=== PATIENT | male | born 1950 | race Caucasian/White ===

== ENCOUNTER 2017-08-08 23:27 | Inpatient (IN) ==
[2017-08-09] MEDS ORDERED: PHENAZOPYRIDINE 95 MG TABLET PO STA (00:16)
[2017-08-09] MEDS ORDERED: ONDANSETRON 4 MG/2 ML VIAL IV PRN (00:33)
[2017-08-09 00:59] LABS: Apearance,Urine CLOUDY (Clear); Bilirubin,Urine Negative (Negative); Blood, Urine Moderate mg/dL (Negative); Calcium Oxalate Crystals,Urine Many /HPF (Few); Glucose,Urine (UA) 50 mg/dL (Negative); Ketones,Urine 20 mg/dL (Negative); Nitrite,Urine Negative (Negative); Protein,Urine 100 MG/DL; RBC,Urine 7229 /HPF (0-4); Urine Color Amber (Yellow); Urine Specific Gravity 1.011 (1.001-1.035); Urine Urobilinogen < 2.0 EU/DL (0.2-1.0); WBC,Urine 373 /HPF (0-6)
[2017-08-09 01:05] LABS: Albumin 4.1 G/DL (3.4-5.0); Calcium 8.8 MG/DL (8.5-10.1); Osmolality,Calculated 280.4 MOS/KG (273-304); Potassium 4.5 MMOL/L (3.5-5.1); Total Protein 7.1 G/DL (6.4-8.3)
[2017-08-09 01:07] LABS: Basophils # 0.1 10*3/uL (0.0-0.2); Basophils % 0.4 % (0.0-0.8); Eosinophils # 0.1 10*3/uL (0.0-0.87); Eosinophils % 0.4 % (0.00-10.9); Hematocrit 38.9 VOL% (42.0-52.0); Hemoglobin 13.4 GM/DL (14.0-18.0); Immature Granulocytes % 0.5 %; Immature Granulocytes Absolute 0.06 #; Lymphocytes # 1.6 10*3/uL (1.4-4.0); Mean Corpuscular HGB Conc 34.4 GM/DL (32-36); Mean Corpuscular Hemoglobin 30 PG (27-34); Mean Corpuscular Volume 86.8 FL (87-102); Monocytes # 0.5 10*3/uL (0.11-0.8); Monocytes % 4.4 % (1.7-12.7); Neutrophils % 81.3 % (38.7-73.9); Platelet Count 189 T/CUMM (130-400); Red Blood Count 4.48 MC/CUMM (3.8-5.5); White Blood Count 12.3 T/CUMM (4-12)
[2017-08-09 06:09] LABS: Hematocrit 37.2 VOL% (42.0-52.0); Hemoglobin 12.9 GM/DL (14.0-18.0)
[2017-08-09] MEDS: TAMSULOSIN 0.4 MG CAPSULE PO SCH (09:35)
[2017-08-09] MEDS: PANTOPRAZOLE 40 MG TABLET PO SCH (09:35)
[2017-08-09] MEDS: ceFAZolin 1,000 MG in SYRINGE 1 EACH IV SCH ×3 (09:35→23:28)
[2017-08-09] MEDS: PHENAZOPYRIDINE 95 MG TABLET PO SCH ×3 (09:35→17:44)
[2017-08-09] MEDS: CARVEDILOL 6.25 MG TABLET PO SCH (21:11)
[2017-08-09] MEDS: busPIRone 10 MG TABLET PO SCH (21:11)
[2017-08-09] MEDS: DONEPEZIL 10 MG TABLET PO SCH (21:11)
[2017-08-09] MEDS: PRAVASTATIN 20 MG TABLET PO SCH (21:11)
[2017-08-10] MEDS: PHENAZOPYRIDINE 95 MG TABLET PO SCH ×3 (07:14→16:09)
[2017-08-10] MEDS: TAMSULOSIN 0.4 MG CAPSULE PO SCH ×2 (07:14→08:22)
[2017-08-10] MEDS: PANTOPRAZOLE 40 MG TABLET PO SCH ×2 (07:14→08:22)
[2017-08-10] MEDS: ceFAZolin 1,000 MG in SYRINGE 1 EACH IV SCH ×3 (08:57→23:43)
[2017-08-10 09:17] LABS: Hematocrit 35.1 VOL% (42.0-52.0)
[2017-08-10] MEDS: oxyCODONE/ACETAMINOPHEN 5-325 MG TABLET PO PRN ×4 (11:57→22:33)
[2017-08-10] MEDS ORDERED: SENNA 8.6 MG TABLET PO PRN (13:21)
[2017-08-10] MEDS ORDERED: SENNA 8.6 MG TABLET PO ONE (13:21)
[2017-08-10] MEDS ORDERED: HYDROmorphone 2 MG/1 ML VIAL IV PRN (13:23)
[2017-08-10] MEDS: DONEPEZIL 10 MG TABLET PO SCH (20:21)
[2017-08-10] MEDS: busPIRone 10 MG TABLET PO SCH (20:21)
[2017-08-10] MEDS: PRAVASTATIN 20 MG TABLET PO SCH (20:21)
[2017-08-10] MEDS: CARVEDILOL 6.25 MG TABLET PO SCH (20:21)
[2017-08-11 06:44] LABS: Basophils % 0.3 % (0.0-0.8); Eosinophils # 0.3 10*3/uL (0.0-0.87); Eosinophils % 1.7 % (0.00-10.9); Hematocrit 34.9 VOL% (42.0-52.0); Hemoglobin 11.9 GM/DL (14.0-18.0); Immature Granulocytes % 0.5 %; Immature Granulocytes Absolute 0.07 #; Lymphocytes # 2.5 10*3/uL (1.4-4.0); Lymphocytes % 17.1 % (21.2-54.2); Mean Corpuscular HGB Conc 34.1 GM/DL (32-36); Mean Corpuscular Hemoglobin 30 PG (27-34); Mean Corpuscular Volume 88.1 FL (87-102); Mean Platelet Volume 11.5 FL (9.6-12.0); Monocytes # 1.2 10*3/uL (0.11-0.8); Neutrophils # 10.8 10*3/uL (1.4-7.4); Neutrophils % 72.4 % (38.7-73.9); Platelet Count 199 T/CUMM (130-400); Red Blood Count 3.96 MC/CUMM (3.8-5.5); Red Cell Distribution Width 12.8 % (9.3-17.3); White Blood Count 14.8 T/CUMM (4-12)
[2017-08-11 07:12] LABS: Calcium 8.9 MG/DL (8.5-10.1); Osmolality,Calculated 281.3 MOS/KG (273-304); Potassium 4.3 MMOL/L (3.5-5.1)
[2017-08-11] MEDS ORDERED: BISACODYL 5 MG TABLET PO ONE (08:31)
[2017-08-11] MEDS: TAMSULOSIN 0.4 MG CAPSULE PO SCH (08:54)
[2017-08-11] MEDS: DUTASTERIDE 0.5 MG CAPSULE PO SCH (08:55)
[2017-08-11] MEDS: oxyCODONE/ACETAMINOPHEN 5-325 MG TABLET PO PRN (08:55)
[2017-08-11] MEDS: ceFAZolin 1,000 MG in SYRINGE 1 EACH IV SCH (09:21)
[2017-08-11] MEDS: PANTOPRAZOLE 40 MG TABLET PO SCH ×2 (09:24→12:11)
[2017-08-11] MEDS: PHENAZOPYRIDINE 95 MG TABLET PO SCH (09:24)
[2017-08-11] MEDS: MULTIVITAMIN (CENTRUM) TABLET PO SCH ×2 (09:24→12:11)
[2017-08-11] MEDS: FOLIC ACID 1 MG TABLET PO SCH ×2 (09:24→12:11)
[2017-08-11] MEDS ORDERED: LIDOCAINE 2% TOP JELLY 20 ML VIAL INTRAURETH ONE (09:53)
[2017-08-11] MEDS ORDERED: NEOMYCIN/POLYMYXIN IRRIG SOLN 1 ML AMP BLADDERIRR ONE (09:54)
[2017-08-11] MEDS ORDERED: PROPOFOL 200 MG/20 ML VIAL IV ONE (10:57)
[2017-08-11] MEDS ORDERED: fentaNYL 100 MCG/2 ML VIAL ONE (10:57)
[2017-08-11] MEDS ORDERED: SODIUM CHLORIDE 0.9% 100 ML IV ONE (10:57)
[2017-08-11] MEDS ORDERED: MIDAZOLAM 2 MG/2 ML VIAL ONE (10:57)
[2017-08-11] MEDS: POLYETHYLENE GLYCOL POWDER 17 GM PACK PO SCH (12:11)
[2017-08-11] MEDS: PRAVASTATIN 20 MG TABLET PO SCH (20:27)
[2017-08-11] MEDS: CARVEDILOL 6.25 MG TABLET PO SCH (20:27)
[2017-08-11] MEDS: DONEPEZIL 10 MG TABLET PO SCH (20:27)
[2017-08-11] MEDS: busPIRone 10 MG TABLET PO SCH (20:27)
[2017-08-12] MEDS: DUTASTERIDE 0.5 MG CAPSULE PO SCH (09:04)
[2017-08-12] MEDS: PANTOPRAZOLE 40 MG TABLET PO SCH (09:04)
[2017-08-12] MEDS: TAMSULOSIN 0.4 MG CAPSULE PO SCH (09:04)
[2017-08-12] MEDS: POLYETHYLENE GLYCOL POWDER 17 GM PACK PO SCH (09:05)
[2017-08-12 09:57] VITALS: BP 133/54
== END 2017-08-12 11:59 | disposition home or self-care (01) | DRG 667 ==
LOC: N.ED 23:27 → N.EDINP 08-09 00:31 → N.5E 08-09 01:06
PROVIDERS: ADMIT Urology; ATTEND Urology

== ENCOUNTER 2018-05-30 16:38 | Observation (INO) ==
[2018-05-30] MEDS ORDERED: PANTOPRAZOLE 40 MG VIAL IV STA (17:17)
[2018-05-30 18:14] LABS: Basophils # 0.1 10*3/uL (0.0-0.2); Basophils % 0.5 % (0.0-0.8); Eosinophils # 0.1 10*3/uL (0.0-0.87); Eosinophils % 0.9 % (0.00-10.9); Hematocrit 44.2 VOL% (42.0-52.0); Hemoglobin 14.8 GM/DL (14.0-18.0); Immature Granulocytes % 0.5 %; Immature Granulocytes Absolute 0.06 #; Lymphocytes % 18.5 % (21.2-54.2); Mean Corpuscular HGB Conc 33.5 GM/DL (32-36); Mean Corpuscular Hemoglobin 29 PG (27-34); Mean Platelet Volume 11.2 FL (9.6-12.0); Monocytes # 0.6 10*3/uL (0.11-0.8); Monocytes % 5.2 % (1.7-12.7); Neutrophils # 8.2 10*3/uL (1.4-7.4); Neutrophils % 74.4 % (38.7-73.9); Platelet Count 245 T/CUMM (130-400); Red Blood Count 5.08 MC/CUMM (3.8-5.5); Red Cell Distribution Width 12.9 % (9.3-17.3)
[2018-05-30 18:24] LABS: INR 0.9; PT Patient Result 9.9 SECS; Partial Thromboplastin Time 30.8 SECS (0-40)
[2018-05-30 18:31] LABS: Bilirubin,Total 0.4 MG/DL (0.2-1.0); Calcium 9.6 MG/DL (8.5-10.1); Osmolality,Calculated 275.5 MOS/KG (273-304); Potassium 3.9 MMOL/L (3.5-5.1); Total Protein 7.4 G/DL (6.4-8.3)
[2018-05-30] MEDS ORDERED: DOCUSATE SODIUM 100 MG CAPSULE PO PRN (20:24)
[2018-05-30] MEDS ORDERED: MAGNESIUM SULF RIDER 2 GM in PREMIX 1 EACH IV PRN (20:24)
[2018-05-30] MEDS ORDERED: ZALEPLON 5 MG CAPSULE PO PRN (20:24)
[2018-05-30] MEDS ORDERED: MAGNESIUM SULF RIDER 4 GM in PREMIX 1 EACH IV PRN (20:24)
[2018-05-30] MEDS ORDERED: NITROGLYCERIN DRIP 50 MG/250 ML BOTTLE IV SCH (20:30)
[2018-05-30] MEDS ORDERED: ASPIRIN CHEW 81 MG TABLET PO ONE (22:28)
[2018-05-31] MEDS: ONDANSETRON 4 MG/2 ML VIAL IV PRN (01:55)
[2018-05-31 07:21] LABS: Risk Ratio 7.38; VLDL CHOLESTEROL 93.2 MG/DL
[2018-05-31] MEDS: CARVEDILOL 3.125 MG TABLET PO SCH (09:29)
[2018-05-31] MEDS: ASPIRIN 325 MG TABLET PO SCH (09:29)
[2018-05-31] MEDS: ENOXAPARIN 40 MG/0.4 ML SYRINGE SUBCUT SCH (09:30)
[2018-05-31] MEDS: SIMVASTATIN 10 MG TABLET PO SCH (09:30)
[2018-05-31] MEDS: LOSARTAN/HCTZ 50-12.5 MG TABLET PO SCH (09:30)
[2018-05-31] MEDS: POLYETHYLENE GLYCOL POWDER 17 GM PACK PO SCH (09:30)
[2018-05-31] MEDS: PANTOPRAZOLE 40 MG TABLET PO SCH (09:30)
[2018-05-31] MEDS: ASPIRIN EC 81 MG TABLET PO SCH ×2 (11:25→20:43)
[2018-05-31] MEDS: NITROGLYCERIN 2% OINT 1 INCH/GM PACK TOP SCH ×2 (13:08→17:04)
[2018-06-01] MEDS: NITROGLYCERIN 2% OINT 1 INCH/GM PACK TOP SCH ×4 (00:05→18:43)
[2018-06-01] MEDS ORDERED: POTASSIUM CHLORIDE RIDER 10 MEQ in PREMIX 1 EACH IV PRN (09:15)
[2018-06-01] MEDS ORDERED: MAGNESIUM SULF RIDER 2 GM in PREMIX 1 EACH IV PRN (09:15)
[2018-06-01] MEDS ORDERED: SODIUM CHLORIDE 0.45% 1,000 ML IV SCH (09:30)
[2018-06-01] MEDS: LOSARTAN/HCTZ 50-12.5 MG TABLET PO SCH (10:03)
[2018-06-01] MEDS: CARVEDILOL 3.125 MG TABLET PO SCH (10:03)
[2018-06-01] MEDS: PANTOPRAZOLE 40 MG TABLET PO SCH (10:04)
[2018-06-01] MEDS: SIMVASTATIN 10 MG TABLET PO SCH (10:04)
[2018-06-01] MEDS: ASPIRIN 325 MG TABLET PO SCH (10:04)
[2018-06-01] MEDS ORDERED: DIAZEPAM 5 MG TABLET PO ONE (12:30)
[2018-06-01] MEDS ORDERED: diphenhydrAMINE CAP 25 MG CAPSULE PO ONE (12:30)
[2018-06-01] MEDS ORDERED: MIDAZOLAM 2 MG/2 ML VIAL ONE (16:03)
[2018-06-01] MEDS ORDERED: fentaNYL 100 MCG/2 ML VIAL ONE (16:03)
[2018-06-01] MEDS ORDERED: LIDOCAINE 1% 20 ML VIAL ONE (16:03)
[2018-06-01] MEDS ORDERED: HEPARIN 5,000 UNIT/1 ML VIAL ONE (16:29)
[2018-06-01] MEDS ORDERED: TIROFIBAN 5,000 MCG/100 ML PREMIX IV SCH (16:52)
[2018-06-01] MEDS: SODIUM CHLORIDE 0.9% 1,000 ML IV SCH ×2 (17:21→19:41)
[2018-06-01] MEDS ORDERED: TICAGRELOR 90 MG TABLET ONE (17:27)
[2018-06-01] MEDS ORDERED: fentaNYL 100 MCG/2 ML VIAL IV PRN (17:52)
[2018-06-01 18:03] LABS: Apearance,Urine CLEAR (Clear); Bilirubin,Urine Negative (Negative); Blood, Urine Moderate mg/dL (Negative); Glucose,Urine (UA) Negative (Negative); Ketones,Urine Negative (Negative); Nitrite,Urine Negative (Negative); Protein,Urine Negative; RBC,Urine 146 /HPF (0-4); Urine Color Straw (Yellow); Urine Urobilinogen < 2.0 EU/DL (0.2-1.0); WBC,Urine 1 /HPF (0-6)
[2018-06-01] MEDS: POLYETHYLENE GLYCOL POWDER 17 GM PACK PO SCH (18:42)
[2018-06-01] MEDS: ENOXAPARIN 40 MG/0.4 ML SYRINGE SUBCUT SCH (18:43)
[2018-06-01] MEDS: CILOSTAZOL 50 MG TABLET PO SCH ×2 (18:52→22:20)
[2018-06-01] MEDS ORDERED: ROSUVASTATIN 10 MG TABLET PO SCH (21:00)
[2018-06-01] MEDS: TICAGRELOR 90 MG TABLET PO SCH (22:18)
[2018-06-01] MEDS: ACETAMINOPHEN 325 MG TABLET PO PRN (22:18)
[2018-06-01] MEDS: ONDANSETRON 4 MG/2 ML VIAL IV PRN (22:24)
[2018-06-01] MEDS ORDERED: SODIUM CHLORIDE 0.9% 1,000 ML IV SCH (23:00)
[2018-06-02] MEDS ORDERED: ONDANSETRON 4 MG/2 ML VIAL IV ONE (00:07)
[2018-06-02] MEDS: ONDANSETRON 4 MG/2 ML VIAL IV PRN (00:10)
[2018-06-02] MEDS ORDERED: PROMETHAZINE 25 MG/1 ML VIAL IM ONE (01:49)
[2018-06-02 01:58] LABS: Basophils % 0.2 % (0.0-0.8); Eosinophils % 0.2 % (0.00-10.9); Hematocrit 41.1 VOL% (42.0-52.0); Hemoglobin 13.4 GM/DL (14.0-18.0); Immature Granulocytes % 0.4 %; Immature Granulocytes Absolute 0.07 #; Lymphocytes % 6.1 % (21.2-54.2); Mean Corpuscular HGB Conc 32.6 GM/DL (32-36); Mean Corpuscular Hemoglobin 29 PG (27-34); Mean Corpuscular Volume 88.2 FL (87-102); Monocytes # 0.7 10*3/uL (0.11-0.8); Monocytes % 4.1 % (1.7-12.7); Neutrophils # 14.6 10*3/uL (1.4-7.4); Platelet Count 216 T/CUMM (130-400); Red Blood Count 4.66 MC/CUMM (3.8-5.5); White Blood Count 16.4 T/CUMM (4-12)
[2018-06-02 02:20] LABS: Calcium 7.8 MG/DL (8.5-10.1); Osmolality,Calculated 275.8 MOS/KG (273-304); Potassium 3.5 MMOL/L (3.5-5.1)
[2018-06-02 02:24] LABS: Troponin I 0.144 NG/ML (0.00-0.045)
[2018-06-02] MEDS: CILOSTAZOL 50 MG TABLET PO SCH (08:53)
[2018-06-02] MEDS: CARVEDILOL 3.125 MG TABLET PO SCH (08:53)
[2018-06-02] MEDS: PANTOPRAZOLE 40 MG TABLET PO SCH (08:53)
[2018-06-02] MEDS: TICAGRELOR 90 MG TABLET PO SCH (08:54)
[2018-06-02] MEDS: POLYETHYLENE GLYCOL POWDER 17 GM PACK PO SCH ×2 (08:54→09:02)
[2018-06-02] MEDS: LOSARTAN/HCTZ 50-12.5 MG TABLET PO SCH (08:57)
[2018-06-02] MEDS: ACETAMINOPHEN 325 MG TABLET PO PRN (09:00)
[2018-06-02] MEDS ORDERED: ASPIRIN CHEW 81 MG TABLET PO SCH (09:00)
[2018-06-02] MEDS ORDERED: EZETIMIBE 10 MG TABLET PO SCH (09:00)
[2018-06-02] MEDS: NITROGLYCERIN 2% OINT 1 INCH/GM PACK TOP SCH (09:02)
[2018-06-02 10:27] LABS: Apearance,Urine Slightly Hazy (Clear); Bilirubin,Urine Negative (Negative); Blood, Urine Large mg/dL (Negative); Glucose,Urine (UA) Negative (Negative); Ketones,Urine 20 mg/dL (Negative); Nitrite,Urine Negative (Negative); Protein,Urine 30 MG/DL; RBC,Urine 91 /HPF (0-4); Urine Color Yellow (Yellow); Urine Specific Gravity 1.026 (1.001-1.035); Urine Urobilinogen < 2.0 EU/DL (0.2-1.0); WBC,Urine 170 /HPF (0-6)
[2018-06-02 10:37] LABS: Troponin I 0.174 NG/ML (0.00-0.045)
[2018-06-02 12:03] VITALS: BP 129/60
[2018-06-02] MEDS ORDERED: LEVOFLOXACIN 500 MG TABLET PO SCH (14:30)
[2018-06-03] MEDS ORDERED: ASPIRIN EC 81 MG TABLET PO SCH (09:00)
== END 2018-06-02 16:20 | disposition home or self-care (01) ==
LOC: N.EDINP 16:38 → N.ED 16:38 → N.TELES 05-31 10:21
PROVIDERS: ADMIT Internal Medicine Cardiovascular Disease; ATTEND Internal Medicine Cardiovascular Disease
PROC: CLCCHCL (ICD-10-PCS; 2018-06-01 14:15)